=== PATIENT | female | born 1970 | race Caucasian/White ===

== ENCOUNTER 2017-04-02 12:28 | Emergency (ER) | payer OTHER ==
[~2017-04-02] VITALS: Ht 152.4 cm; Wt 57.3 kg
[~2017-04-02 12:28] MED LIST: LISI-360 PO; SYNT137T PO
[2017-04-02 12:32] VITALS: BP 152/99; PULSE 88; RESP 16; TEMP 98.7; O2SAT 99
--- NOTE | 2017-04-02 13:38 | PD ---
HPI Chief Complaint: GI Complaint Time Seen by Provider: 13:31 Travel History International Travel<30 days: No Contact w/Intl Traveler<30days: No Traveled to known affect area: No History of Present Illness HPI This 46-year-old female is complaining of vomiting and headache. She says she started vomiting last night and vomited about 6-7 times. She has had a small amount of loose stool. She says around 8:00 this morning she had a fairly sudden onset of a frontal headache. She says she is not prone to headaches and very rarely gets any headache. Says the headache is quite severe at this time. She has no numbness or tingling. PFSH Past Medical History Hypertension: Yes Thyroid Disease: Yes Ectopic : Yes Past Surgical History Other Surgery: Yes (STATES SHE HAS HAD HER THYROID REMOVED ) Social History Alcohol Use: No Tobacco Use: No Substance Use: No Allergies-Medications (Allergen,Severity, Reaction): Coded Allergies: Sulfa (Verified Allergy, Severe, 04/02/17) Reported Meds & Prescriptions Reported Meds & Active Scripts Active Synthroid 137 mcg (Levothyroxine Sodium) 137 Mcg Tab 137 Mcg PO DAILY Lisinopril 10 mg (Lisinopril) 10 Mg Tab 1 Tab PO DAILY Review of Systems General / Constitutional: No: Fever, Chills Eyes: No: Diploplia HENT: Positive: Headaches Cardiovascular: No: Chest Pain or Discomfort, Palpitations Respiratory: No: Cough Gastrointestinal: Positive: Vomiting, Abdominal Pain Skin: No Rash Neurologic: No: Weakness Psychiatric: No: Anxiety Endocrine: No: Heat Intolerance, Cold Intolerance Hematologic/Lymphatic: No: Easy Bruising Physical Exam Narrative GENERAL: Well-developed female SKIN: Focused skin assessment warm/dry. HEAD: Atraumatic. Normocephalic. EYES: Pupils equal and round. No scleral icterus. No injection or drainage. ENT: No nasal bleeding or discharge. Mucous membranes pink and moist. NECK: Trachea midline. No JVD. Neck is supple CARDIOVASCULAR: Regular rate and rhythm. No murmur appreciated. RESPIRATORY: No accessory muscle use. Clear to auscultation. Breath sounds equal bilaterally. GASTROINTESTINAL: Abdomen soft, non-tender, nondistended. Hepatic and splenic margins not palpable. MUSCULOSKELETAL: No obvious deformities. No clubbing. No cyanosis. No edema. NEUROLOGICAL: Awake and alert. No obvious cranial nerve deficits. Motor grossly within normal limits. Normal speech. PSYCHIATRIC: Appropriate mood and affect; insight and judgment normal. Data Data Last Documented VS Vital Signs Date Time Temp Pulse Resp B/P Pulse Ox O2 Delivery O2 Flow Rate FiO2 04/02/17 12:32 98.7 88 16 152/99 99 Orders Complete Blood Count With Diff (04/02/17 13:35) Comprehensive Metabolic Panel (04/02/17 13:35) Ct Brain W/O Iv Contrast(Rout) (04/02/17 13:35) Sodium Chlor 0.9% 1000 Ml Inj (Ns 1000 M (04/02/17 13:45) Ondansetron Inj (Zofran Inj) (04/02/17 13:45) Ketorolac Inj (Toradol Inj) (04/02/17 13:45) Labs Laboratory Tests Test 04/02/17 13:39 White Blood Count 10.0 TH/MM3 Red Blood Count 4.74 MIL/MM3 Hemoglobin 11.8 GM/DL Hematocrit 37.2 % Mean Corpuscular Volume 78.4 FL Mean Corpuscular Hemoglobin 24.8 PG Mean Corpuscular Hemoglobin 31.7 % Concent Red Cell Distribution Width 16.3 % Platelet Count 442 TH/MM3 Mean Platelet Volume 7.7 FL Neutrophils (%) (Auto) 82.9 % Lymphocytes (%) (Auto) 13.7 % Monocytes (%) (Auto) 2.4 % Eosinophils (%) (Auto) 0.8 % Basophils (%) (Auto) 0.2 % Neutrophils # (Auto) 8.3 TH/MM3 Lymphocytes # (Auto) 1.4 TH/MM3 Monocytes # (Auto) 0.2 TH/MM3 Eosinophils # (Auto) 0.1 TH/MM3 Basophils # (Auto) 0.0 TH/MM3 CBC Comment DIFF FINAL Differential Comment Sodium Level 141 MEQ/L Potassium Level 3.7 MEQ/L Chloride Level 107 MEQ/L Carbon Dioxide Level 29.2 MEQ/L Anion Gap 5 MEQ/L Blood Urea Nitrogen 14 MG/DL Creatinine 0.72 MG/DL Estimat Glomerular Filtration 87 ML/MIN Rate Random Glucose 91 MG/DL Calcium Level 8.3 MG/DL Total Bilirubin 0.3 MG/DL Aspartate Amino Transf 13 U/L (AST/SGOT) Alanine Aminotransferase 20 U/L (ALT/SGPT) Alkaline Phosphatase 94 U/L Total Protein 7.5 GM/DL Albumin 3.5 GM/DL MDM Medical Decision Making Medical Screen Exam Complete: Yes Emergency Medical Condition: Yes Medical Record Reviewed: Yes Differential Diagnosis Differential includes food poisoning, intracerebral hemorrhage, gastroenteritis Narrative Course CT of the brain is negative. Lab work is unremarkable. Patient has been given IV fluids and Zofran and Toradol and reports feeling better. Diagnosis Primary Impression: Acute gastroenteritis Additional Impression: Headache Qualified Code: R51 - Acute nonintractable headache, unspecified headache type Scripts Ondansetron Odt (Zofran Odt)4 Mg Tab4 Mg SL Q8HR PRN (Nausea/Vomiting) #10 TAB Ref 0 Prov:Sravan Hsu MD 04/02/17 Disposition: 01 DISCHARGE HOME Condition: Stable Sravan Hsu MD Apr 02, 2017 13:38
[2017-04-02] MEDS ORDERED: SODIUM CHLOR 0.9% 1000 ML INJ 1,000 ML IV ONE (13:45)
[2017-04-02] MEDS ORDERED: ONDANSETRON HCL 4 MG/2 ML VIAL IV PUSH ONE (13:45)
[2017-04-02] MEDS ORDERED: KETOROLAC TROMETHAMINE 30 MG/ML (IVP) VIAL IV PUSH ONE (13:45)
--- NOTE | 2017-04-02 14:02 | RADHPO ---
EXAM DATE/TIME: 04/02/2017 13:43 [facility] COMPARISON: No previous studies available for comparison. INDICATIONS : Cephalgia. RADIATION DOSE: 64.25 CTDIvol (mGy) MEDICAL HISTORY : Hypertension. SURGICAL HISTORY : Thyroidectomy. ENCOUNTER: Initial ACUITY: 1 day PAIN SCALE: 8/10 LOCATION: cranial TECHNIQUE: Multiple contiguous axial images were obtained of the head. Using automated exposure control and adj ustment of the mA and/or kV according to patient size, radiation dose was kept as low as reasonably a chievable to obtain optimal diagnostic quality images. FINDINGS: CEREBRUM: The ventricles are normal for age. No evidence of midline shift, mass lesion, hemorrhage or acute in farction. No extra-axial fluid collections are seen. POSTERIOR FOSSA: The cerebellum and brainstem are intact. The 4th ventricle is midline. The cerebellopontine angle i s unremarkable. EXTRACRANIAL: The visualized portion of the orbits is intact. SKULL: The calvaria is intact. No evidence of skull fracture. CONCLUSION: No acute disease. Jm Maldonado MD on April 02, 2017 at 13:59 Board Certified Radiologist. This report was verified electronically.
[2017-04-02 14:06] LABS: AUTOMATED NEUTROPHIL # 8.3 TH/MM3 (1.8-7.7); BASOPHIL % 0.2 % (0.0-2.0); EOSINOPHIL # 0.1 TH/MM3 (0-0.4); EOSINOPHIL % 0.8 % (0.0-4.0); HEMATOCRIT 37.2 % (35.0-46.0); LYMPH % 13.7 % (9.0-44.0); LYMPHOCYTE # 1.4 TH/MM3 (1.0-4.8); MEAN CELL VOLUME 78.4 FL (80.0-100.0); MEAN CORPUSCULAR HEMOGLOBIN 24.8 PG (27.0-34.0); MEAN CORPUSCULAR HGB CONC 31.7 % (32.0-36.0); MONO % 2.4 % (0.0-8.0); NEUT % 82.9 % (16.0-70.0); PLATELET COUNT 442 TH/MM3 (150-450); RED BLOOD COUNT 4.74 MIL/MM3 (4.00-5.30); RED CELL DISTRIBUTION WIDTH 16.3 % (11.6-17.2)
[2017-04-02 14:09] LABS: CHLORIDE 107 MEQ/L (98-107); POTASSIUM 3.7 MEQ/L (3.5-5.1); SODIUM (NA) 141 MEQ/L (136-145)
[2017-04-02 14:12] LABS: ANION GAP 5 MEQ/L (5-15); BICARBONATE 29.2 MEQ/L (21.0-32.0); BLOOD UREA NITROGEN 14 MG/DL (7-18)
[2017-04-02 14:15] LABS: ALT (GPT) 20 U/L (10-53); AST (GOT) 13 U/L (15-37); GLOMERULAR FILTRATION RATE 87 ML/MIN (>89); HEMO FLAGS DIFF FINAL
[2017-04-02 14:17] LABS: TOTAL BILIRUBIN ADULT 0.3 MG/DL (0.2-1.0)
[2017-04-02 14:18] LABS: ALKALINE PHOSPHATASE 94 U/L (45-117)
[2017-04-02 14:41] VITALS: BP 130/83; PULSE 72; RESP 16; O2SAT 100
[2017-04-02] MEDS ORDERED: ZOFR4TAB3 SL (14:43)
== END 2017-04-02 15:07 | disposition home or self-care (01) ==
LOC: PHED 12:28
DX: K52.9 Noninfective gastroenteritis and colitis, unspecified (principal); R51 Headache
CPT/HCPCS: 70450; 80053; 85025; 96361; 96374; 96375; 99285; J1885; J2405; J7030

== ENCOUNTER 2018-03-25 10:39 | Emergency (ER) | payer OTHER ==
[~2018-03-25] VITALS: Ht 152.4 cm; Wt 56.5 kg
[~2018-03-25 10:39] MED LIST changes: +ZOFR4TAB3 SL
[2018-03-25 10:44] VITALS: BP 160/106; PULSE 75; RESP 18; TEMP 98.5; O2SAT 99
--- NOTE | 2018-03-25 10:51 | PD ---
HPI Chief Complaint: Abdominal Pain Time Seen by Provider: 10:51 Travel History International Travel<30 days: No Contact w/Intl Traveler<30days: No Traveled to known affect area: No History of Present Illness HPI 47-year-old female presents emergency department with upper epigastric pain, and nausea with radiation to the back. Patient states this started Friday night/Friday morning, and has progressively gotten worse over the last 3 days. Patient denies significant fever. She denies fever, but is very nauseous. She has no urinary symptoms or diarrhea. Patient has no history of abdominal surgery. Patient has no history of gastritis or pancreatitis in the past. Patient denies chest pain or shortness of breath. Patient has no headache. Pain is cramping and intermittent, but more pronounced in the last 24 hours. Eating tends to make it worse and she has loss of appetite. Pain is currently 8 out of 10. Patient is allergic to sulfa. PFSH Past Medical History Diminished Hearing: No Hypertension: Yes Thyroid Disease: Yes (hypo) ?: Unknown LMP: january Ectopic : Yes Past Surgical History Other Surgery: Yes (STATES SHE HAS HAD HER THYROID REMOVED ) Social History Alcohol Use: Yes (occ.) Tobacco Use: No Substance Use: No Allergies-Medications (Allergen,Severity, Reaction): Coded Allergies: Sulfa (Sulfonamide Antibiotics) (Verified Allergy, Severe, 03/25/18) Reported Meds & Prescriptions Reported Meds & Active Scripts Active Zofran Odt (Ondansetron Odt) 4 Mg Tab 4 Mg SL Q8HR PRN Synthroid 137 mcg (Levothyroxine Sodium) 137 Mcg Tab 137 Mcg PO DAILY Lisinopril 10 mg (Lisinopril) 10 Mg Tab 1 Tab PO DAILY Review of Systems Except as stated in HPI: all other systems reviewed are Neg General / Constitutional: No: Fever Eyes: No: Visual changes HENT: No: Headaches Cardiovascular: No: Chest Pain or Discomfort Respiratory: No: Shortness of Breath Gastrointestinal: Positive: Nausea, Abdominal Pain, Loss of Appetite, No: Vomiting, Diarrhea, Constipation, Indigestion, Dysphagia Genitourinary: No: Dysuria Musculoskeletal: No: Pain Skin: No Rash Neurologic: No: Weakness Psychiatric: No: Depression Endocrine: No: Polydipsia Hematologic/Lymphatic: No: Easy Bruising Physical Exam Narrative GENERAL: Patient appears in moderate distress. SKIN: Warm and dry. Increased pallor. Normal turgor. No diaphoresis. HEAD: Atraumatic. Normocephalic. EYES: Pupils equal and round. No scleral icterus. No injection or drainage. ENT: No nasal bleeding or discharge. Mucous membranes pink and moist. Pharynx is clear. Airways patent NECK: Trachea midline. Supple and nontender. CARDIOVASCULAR: Regular rate and rhythm. RESPIRATORY: No accessory muscle use. Clear to auscultation. Breath sounds equal bilaterally. GASTROINTESTINAL: Abdomen soft, diffusely tender over the epigastric region, nondistended. Question rebound in the right lower quadrant. No CVA tenderness. Negative Snyder sign. Hepatic and splenic margins not palpable. MUSCULOSKELETAL: Extremities without clubbing, cyanosis, or edema. No obvious deformities. NEUROLOGICAL: Awake and alert. No obvious cranial nerve deficits. Motor grossly within normal limits. Five out of 5 muscle strength in the arms and legs. Normal speech. PSYCHIATRIC: Appropriate mood and affect; insight and judgment normal. Data Data Last Documented VS Vital Signs Date Time Temp Pulse Resp B/P (MAP) Pulse Ox O2 Delivery O2 Flow Rate FiO2 03/25/18 10:44 98.5 75 18 160/106 (124) 99 Orders Orders Complete Blood Count With Diff (03/25/18 11:12) Comprehensive Metabolic Panel (03/25/18 11:12) Lipase (03/25/18 11:12) Lactic Acid (03/25/18 11:12) Prothrombin Time / Inr (Pt) (03/25/18 11:12) Act Partial Throm Time (Ptt) (03/25/18 11:12) Urinalysis - C+S If Indicated (03/25/18 11:12) Ct Abd/Pel W Iv Contrast(Rout) (03/25/18 11:12) Iv Access Insert/Monitor (03/25/18 11:12) Ecg Monitoring (03/25/18 11:12) Oximetry (03/25/18 11:12) Morphine Inj (Morphine Inj) (03/25/18 11:15) Pantoprazole Inj (Protonix Inj) (03/25/18 11:15) Sodium Chlor 0.9% 1000 Ml Inj (Ns 1000 M (03/25/18 11:12) Sodium Chloride 0.9% Flush (Ns Flush) (03/25/18 11:15) Al-Mag Hy-Si 40-40-4 Mg/Ml Liq (Mag-Al P (03/25/18 11:15) Lidocaine 2% Viscous (Xylocaine 2% Visco (03/25/18 11:15) Ondansetron Odt (Zofran Odt) (03/25/18 11:15) Iohexol 350 Inj (Omnipaque 350 Inj) (03/25/18 11:55) Labs Laboratory Tests Test 03/25/18 11:30 03/25/18 11:45 White Blood Count 6.7 TH/MM3 Red Blood Count 4.60 MIL/MM3 Hemoglobin 13.2 GM/DL Hematocrit 38.9 % Mean Corpuscular Volume 84.6 FL Mean Corpuscular Hemoglobin 28.6 PG Mean Corpuscular Hemoglobin Concent 33.8 % Red Cell Distribution Width 21.8 % Platelet Count 302 TH/MM3 Mean Platelet Volume 7.5 FL Neutrophils (%) (Auto) 61.1 % Lymphocytes (%) (Auto) 30.6 % Monocytes (%) (Auto) 6.7 % Eosinophils (%) (Auto) 1.2 % Basophils (%) (Auto) 0.4 % Neutrophils # (Auto) 4.1 TH/MM3 Lymphocytes # (Auto) 2.0 TH/MM3 Monocytes # (Auto) 0.4 TH/MM3 Eosinophils # (Auto) 0.1 TH/MM3 Basophils # (Auto) 0.0 TH/MM3 CBC Comment AUTO DIFF Differential Comment AUTO DIFF CONFIRMED Platelet Estimate NORMAL Platelet Morphology Comment NORMAL Ovalocytes 1+ Prothrombin Time 10.6 SEC Prothromb Time International Ratio 1.0 RATIO Activated Partial Thromboplast Time 26.4 SEC Blood Urea Nitrogen 17 MG/DL Creatinine 0.67 MG/DL Random Glucose 76 MG/DL Total Protein 7.0 GM/DL Albumin 3.6 GM/DL Calcium Level 9.4 MG/DL Alkaline Phosphatase 84 U/L Aspartate Amino Transf (AST/SGOT) 10 U/L Alanine Aminotransferase (ALT/SGPT) 20 U/L Total Bilirubin 0.2 MG/DL Sodium Level 141 MEQ/L Potassium Level 3.5 MEQ/L Chloride Level 106 MEQ/L Carbon Dioxide Level 24.9 MEQ/L Anion Gap 10 MEQ/L Estimat Glomerular Filtration Rate 94 ML/MIN Lactic Acid Level 0.8 mmol/L Lipase 114 U/L Urine Color YELLOW Urine Turbidity HAZY Urine pH 6.0 Urine Specific [place] 1.024 Urine Protein TRACE mg/dL Urine Glucose (UA) NEG mg/dL Urine Ketones NEG mg/dL Urine Occult Blood TRACE Urine Nitrite NEG Urine Bilirubin NEG Urine Urobilinogen LESS THAN 2.0 MG/DL Urine Leukocyte Esterase NEG Urine RBC LESS THAN 1 /hpf Urine WBC 1 /hpf Urine Squamous Epithelial Cells 5 /hpf Urine Bacteria RARE /hpf Urine Hyaline Casts 13 /lpf Urine Mucus MANY /lpf Microscopic Urinalysis Comment CULT NOT INDICATED MDM Medical Decision Making Medical Screen Exam Complete: Yes Emergency Medical Condition: Yes Differential Diagnosis Abdominal pain. Pancreatitis. Biliary colic. Gastritis. Appendicitis. Colitis. Narrative Course Patient is medically stable at time of exam. Labs ordered including CBC, CMP, coagulation studies, lactic acid, lipase, and urinalysis. IV access is obtained the patient is given 4 mg Zofran ODT p.o., 40 mg pantoprazole IV, 4 mg morphine IV, and 1000 mL of normal saline bolus. GI cocktail is ordered. CT of the abdomen and pelvis with IV contrast is ordered CT showed no acute process. CBC is unremarkable Coagulation studies are normal. Chemistries are unremarkable. Urinalysis was unremarkable. Patient feels improved after the above treatment. Patient is felt to have a gastritis/esophagitis. She will be discharged home on Zofran 4 mg every 6 hours as needed #12. Patient also given omeprazole 40 mg daily #30 Patient to follow-up if symptoms persist or worsen as needed. Diagnosis Primary Impression: Acute gastroenteritis Patient Instructions: Diet for Stomach Ulcers and Gastritis (ED), General Instructions Additional Instructions: CT showed no acute process. CBC is unremarkable Coagulation studies are normal. Chemistries are unremarkable. Urinalysis was unremarkable. Patient feels improved after the above treatment. Patient is felt to have a gastritis/esophagitis. She will be discharged home on Zofran 4 mg every 6 hours as needed #12. Patient also given omeprazole 40 mg daily #30 Patient to follow-up if symptoms persist or worsen as needed. Med/Other Pt SpecificInfo: Prescription(s) given Disposition: DISCHARGE HOME Condition: Stable Kelvin Schneider Mar 25, 2018 10:51
[2018-03-25] MEDS ORDERED: SODIUM CHLOR 0.9% 1000 ML INJ 1,000 ML IV SCH (11:12)
[2018-03-25] MEDS ORDERED: MORPHINE SULFATE 4 MG/ML INJ IV PUSH ONE (11:15)
[2018-03-25] MEDS ORDERED: ALUMINUM/MAGNESIUM/SIMETH 30 ML CUP PO ONE (11:15)
[2018-03-25] MEDS ORDERED: LIDOCAINE VISCOUS 2% SOLN 15 ML UDC PO ONE (11:15)
[2018-03-25] MEDS ORDERED: PANTOPRAZOLE SODIUM 40 MG VIAL IVP ONE (11:15)
[2018-03-25] MEDS ORDERED: SODIUM CHLORIDE 0.9% FLUSH 10 ML FLUSH IV FLUSH PRN (11:15)
[2018-03-25] MEDS ORDERED: ONDANSETRON ODT 4 MG TAB PO ONE (11:15)
[2018-03-25 11:39] LABS: AUTOMATED NEUTROPHIL # 4.1 TH/MM3 (1.8-7.7); BASOPHIL % 0.4 % (0.0-2.0); EOSINOPHIL # 0.1 TH/MM3 (0-0.4); EOSINOPHIL % 1.2 % (0.0-4.0); HEMATOCRIT 38.9 % (35.0-46.0); HEMOGLOBIN 13.2 GM/DL (11.6-15.3); LYMPH % 30.6 % (9.0-44.0); MEAN CELL VOLUME 84.6 FL (80.0-100.0); MEAN CORPUSCULAR HEMOGLOBIN 28.6 PG (27.0-34.0); MEAN CORPUSCULAR HGB CONC 33.8 % (32.0-36.0); MEAN PLATELET VOLUME 7.5 FL (7.0-11.0); MONO % 6.7 % (0.0-8.0); MONOCYTE # 0.4 TH/MM3 (0-0.9); NEUT % 61.1 % (16.0-70.0); PLATELET COUNT 302 TH/MM3 (150-450); RED CELL DISTRIBUTION WIDTH 21.8 % (11.6-17.2); WHITE BLOOD COUNT 6.7 TH/MM3 (4.0-11.0)
[2018-03-25 11:47] LABS: PROTHROMBIN TIME - PATIENT 10.6 SEC (9.8-11.6)
[2018-03-25] MEDS ORDERED: IOHEXOL 350 MG/ML 10 ML VIAL (for RAD DIAG) IVCONTRAST ONE (11:55)
[2018-03-25 12:10] LABS: ALBUMIN 3.6 GM/DL (3.4-5.0); AST (GOT) 10 U/L (15-37); BICARBONATE 24.9 MEQ/L (21.0-32.0); BLOOD UREA NITROGEN 17 MG/DL (7-18); CALCIUM 9.4 MG/DL (8.5-10.1); CHLORIDE 106 MEQ/L (98-107); CREATININE 0.67 MG/DL (0.50-1.00); GLOMERULAR FILTRATION RATE 94 ML/MIN (>89); GLUCOSE,RANDOM 76 MG/DL (74-106); SODIUM (NA) 141 MEQ/L (136-145)
[2018-03-25 12:11] LABS: ALT (GPT) 20 U/L (10-53)
[2018-03-25 12:13] LABS: ALKALINE PHOSPHATASE 84 U/L (45-117); TOTAL BILIRUBIN ADULT 0.2 MG/DL (0.2-1.0)
[2018-03-25 12:22] LABS: OVALOCYTES 1+ (NORMAL)
--- NOTE | 2018-03-25 12:32 | RADRPT ---
EXAM DATE: 03/25/2018 11:58 AM EDT AGE/SEX: 47 years / Female INDICATIONS: Abdominal pain in middle of abdomen. Nausea. CLINICAL DATA: This is the patient's initial encounter. Patient reports that signs and symptoms have been present for 4 - 6 days and indicates a pain score of 6/10. MEDICAL/SURGICAL HISTORY: Hypertension. Hypothyroidism. None. ORAL CONTRAST: No oral contrast ingested. RADIATION DOSE: 4.78 CTDI (mGy) COMPARISON: No prior [facility] exams available for comparison. TECHNIQUE: Multiple contiguous axial images were obtained through the abdomen and pelvis following b olus infusion of 95 ml Omnipaque 350 (iohexol) nonionic water-soluble contrast as a single exam dos e. No oral contrast ingested. Using automated exposure control and adjustment of the mA and/or kV ac cording to patient size, the radiation dose was kept as low as reasonably achievable to obtain optima l diagnostic quality images. FINDINGS: Lower Lungs: The visualized lower lungs are clear. Liver: The liver has a homogeneous density . Multiple small hepatic cysts scattered throughout the li cedric. There is no dilation of the biliary tree. Gallbladder is decompressed. Spleen: Homogeneous density without enlargement. Pancreas: Unremarkable without mass or calcification. Kidneys: Normal in size and shape. Multiple tiny sub-1 cm cortical cysts bilaterally. No evidence of mass or hydronephrosis. Adrenal Glands: Unremarkable. Aorta: The aorta and proximal iliac vessels are grossly unremarkable without aneurysmal dilation. Bowel/Mesentery: The bowel loops are grossly unremarkable. The cecum and sigmoid colon have a normal configuration. Abdominal Wall: Intact. Retroperitoneum: No evidence of adenopathy in the retrocrural, para-aortic, or deep pelvic regions. Bladder: Contours are smooth. Reproductive Organs: The uterus is anteverted. A 2.6 cm cyst is seen within the right adnexa. Hounsf ield units are 16. No free fluid.. Inguinal: The inguinal region is unremarkable without evidence of adenopathy. Bony Structures: Unremarkable. CONCLUSION: 1. No acute abnormality. 2. 2.6 cm right adnexal cyst likely ovarian in nature. 3. Small hepatic and renal cysts. Electronically signed by: Ed Alvarado MD 03/25/2018 12:31 PM EDT
[2018-03-25 12:46] LABS: BACTERIA, URINE RARE /hpf; BILIRUBIN, URINE NEG (NEG); BLOOD, URINE TRACE (NEG); GLUCOSE,URINE NEG (NEG); HYALINE CAST, URINE 13 /lpf (RARE); KETONE, URINE NEG (NEG); MUCUS URINE MANY /lpf (OCC); NITRITE,URINE NEG (NEG); SQUAMOUS EPITHELIAL CELL URINE 5 /hpf (0-5); URINE COLOR YELLOW (YELLW/STRAW); URINE LEUKOCYTE ESTERASE NEG (NEG)
[2018-03-25] MEDS ORDERED: OMEP40CA2 PO (13:18)
[2018-03-25] MEDS ORDERED: ZOFR4TAB PO (13:18)
[2018-03-25 13:40] VITALS: O2SAT 97
== END 2018-03-25 13:58 | disposition home or self-care (01) ==
LOC: NEPD 10:39
DX: K52.9 Noninfective gastroenteritis and colitis, unspecified (principal); E03.9 Hypothyroidism, unspecified; I10 Essential (primary) hypertension
CPT/HCPCS: 74177; 80053; 81001; 83605; 83690; 85025; 85610; 85730; 96361; 96374; 96375; 99284; C9113; J2270; J7030; Q9967